=== PATIENT | male | born 1985 | race Hispanic/Latino ===

== ENCOUNTER 2018-12-17 18:24 | Emergency (ER) | payer OTHER, SELFPAY ==
--- NOTE | 2018-12-17 19:13 | RAD ---
RADIOGRAPH LEFT SHOULDER 3 VIEWS: 12/17/18 at 6:36 p.m. HISTORY: Dislocation of left shoulder. FINDINGS: There is no fracture, dislocation, subluxation, or any other major osseous abnormality. IMPRESSION: Negative. POS: [facility]
== END 2018-12-17 19:32 | disposition home or self-care (01) ==
LOC: ERS 18:24
DX: M25.512 Pain in left shoulder (principal); F17.210 Nicotine dependence, cigarettes, uncomplicated

== ENCOUNTER 2019-01-07 09:41 | Emergency (ER) | payer SELFPAY ==
[2019-01-07] MEDS ORDERED: Fentanyl 100 MCG/2 ML VIAL ONE ×2 (10:22→11:00)
[2019-01-07] MEDS ORDERED: Lidocaine 1% (PF) 30 ML VIAL ONE (10:26)
--- NOTE | 2019-01-07 11:15 | RAD ---
LEFT SHOULDER 3 VIEWS: Date: 01/07/19 INDICATION: Deformity. Patient denies injury. FINDINGS: There is an abnormal anterior and inferior location of the humeral head relative to the scapular erlin oid. No discrete fracture identified. IMPRESSION: Anterior left shoulder dislocation. Recommend follow-up imaging upon yarsanism of alignment to excl ude the possibility of a subtle associated fracture. POS: [facility]
[2019-01-07] MEDS ORDERED: PROPOFOL 20 ML ONE (11:43)
--- NOTE | 2019-01-07 13:53 | RAD ---
FRONTAL VIEW LEFT SHOULDER: Date: 01/07/19 INDICATION: Status post reduction. Recent anterior dislocation. FINDINGS: Post reduction view reveals improved alignment of the left humeral head. There is a focal defect with slight underlying density and cortical irregularity at the superolateral left humeral head indicativ e of a Hill-Sachs lesion. Subtle underlying cortical irregularity of the inferior aspect of the scapu lar glenoid may also be present, indicating an associated Bankart lesion given the recent dislocation . IMPRESSION: 1. Restored alignment. 2. Findings which suggest a Hill-Sachs lesion of the proximal left humerus, and the possibility of a Bankart lesion of the left scapular glenoid. Telephone call with above findings placed to ER physician, Carlin Denson, at time of interpretation. CODE CR. POS: [facility]
== END 2019-01-07 12:35 | disposition home or self-care (01) ==
LOC: ERS 09:41
DX: S43.015A Anterior dislocation of left humerus, initial encounter (principal); F31.9 Bipolar disorder, unspecified; F20.9 Schizophrenia, unspecified; F41.9 Anxiety disorder, unspecified; F17.210 Nicotine dependence, cigarettes, uncomplicated; W08.XXXA Fall from other furniture, initial encounter
CPT/HCPCS: 23650; 96374; 99152; J2001; J2704; J3010

== ENCOUNTER 2019-01-17 09:49 | Emergency (ER) | payer SELFPAY ==
--- NOTE | 2019-01-17 11:26 | RAD ---
2 VIEWS OF LEFT SHOULDER: Date; 01/17/19 COMPARISON: None. HISTORY: Left shoulder dislocation. Last shoulder dislocation was 1 week ago. COMPARISON: 01/07/19. FINDINGS: Two views of the left shoulder show anterior/inferior dislocation of the glenohumeral joint. There ap pears to be a Hill-Sachs deformity in the proximal humerus. IMPRESSION: Left glenohumeral dislocation. POS: [facility]
[2019-01-17] MEDS ORDERED: Fentanyl 100 MCG/2 ML VIAL ONE (11:35)
[2019-01-17] MEDS ORDERED: PROPOFOL 20 ML ONE (12:17)
--- NOTE | 2019-01-17 13:32 | RAD ---
TWO VIEWS LEFT SHOULDER: Comparison: 01-17-19 at 1:48 a.m. History: Post reduction. FINDINGS: Two views of the left shoulder shows reduction of the previously seen shoulder dislocation. There santa ears to be a [place]-Sachs deformity in the proximal humerus. IMPRESSION: Reduction of shoulder dislocation. POS: [facility]
== END 2019-01-17 14:06 | disposition home or self-care (01) ==
LOC: ERS 09:49
DX: S43.015A Anterior dislocation of left humerus, initial encounter (principal); S43.035A Inferior dislocation of left humerus, initial encounter; F41.9 Anxiety disorder, unspecified; F31.9 Bipolar disorder, unspecified; F20.9 Schizophrenia, unspecified; F17.210 Nicotine dependence, cigarettes, uncomplicated; W06.XXXA Fall from bed, initial encounter
CPT/HCPCS: 23650; 96374; 99152; J2704; J3010

== ENCOUNTER 2019-01-20 10:30 | Emergency (ER) | payer SELFPAY ==
[2019-01-20] MEDS ORDERED: Morphine 4 MG/ML VIAL ONE (11:10)
[2019-01-20] MEDS ORDERED: Ondansetron PF 4 MG/2 ML Vial ONE (11:10)
--- NOTE | 2019-01-20 11:52 | RAD ---
LEFT SHOULDER 2 VIEWS: Date: 01/20/19 HISTORY: Shoulder pain. COMPARISON: 01/17/19. FINDINGS: There is a recurrent anterior shoulder dislocation present. I do not visualize any definite avulsion type fractures. IMPRESSION: Recurrent anterior shoulder dislocation. POS: [facility]
[2019-01-20] MEDS ORDERED: PROPOFOL 20 ML ONE (12:50)
[2019-01-20] MEDS ORDERED: KETAMINE 100 MG/ML (5ML VIAL) ONE (12:53)
--- NOTE | 2019-01-20 15:23 | RAD ---
LEFT SHOULDER 2 VIEWS: Date: 01/20/19 INDICATION: History of dislocation status post reduction. COMPARISON: Since the prior examination, there has been interval reduction of the glenohumeral joint dislocation. No acute osseous abnormality is evident. IMPRESSION: Interval reduction of glenohumeral joint dislocation. POS: [facility]
== END 2019-01-20 14:49 | disposition home or self-care (01) ==
LOC: ERS 10:30
DX: S43.015A Anterior dislocation of left humerus, initial encounter (principal); F41.9 Anxiety disorder, unspecified; F31.9 Bipolar disorder, unspecified; F20.9 Schizophrenia, unspecified; F17.210 Nicotine dependence, cigarettes, uncomplicated; X58.XXXA Exposure to other specified factors, initial encounter
CPT/HCPCS: 23650; 96374; 96375; 99152; J2270; J2405; J2704

== ENCOUNTER 2019-04-10 23:50 | Emergency (ER) | payer SELFPAY ==
[2019-04-11] MEDS ORDERED: Propofol 500 MG/50 ML VIAL ONE (02:40)
--- NOTE | 2019-04-11 07:40 | RAD ---
LEFT SHOULDER 2 VIEWS 04/11/2019 at 2:47 AM HISTORY: left shoulder dislocation. Postreduction. COMPARISON: Earlier exam of 1:43 AM from the same date. FINDINGS: There is been interval reduction of the anterior dislocation at the glenohumeral joint noted on the e arlier exam. Anatomic alignment has been restored. A Hill-Sachs lesion is seen..
--- NOTE | 2019-04-11 07:41 | RAD ---
Radiograph left shoulder 2 views: DATE: 04/11/2019 Time: 1:44 AM HISTORY: 33-year-old male with left shoulder pain and deformity due to fall FINDINGS: There is anterior-inferior dislocation of the humeral head relative to the glenoid. There is a Hill-S achs defect at the humeral head indicating previous anterior shoulder dislocations. IMPRESSION: Anterior shoulder dislocation of the glenohumeral joint
== END 2019-04-11 03:40 | disposition home or self-care (01) ==
LOC: ERS 23:50
DX: S43.015A Anterior dislocation of left humerus, initial encounter (principal); F41.9 Anxiety disorder, unspecified; F31.9 Bipolar disorder, unspecified; F20.9 Schizophrenia, unspecified; F17.210 Nicotine dependence, cigarettes, uncomplicated; Z71.6 Tobacco abuse counseling; W11.XXXA Fall on and from ladder, initial encounter
CPT/HCPCS: 23650; 96374; J2704

== ENCOUNTER 2019-04-27 17:42 | Emergency (ER) | payer SELFPAY ==
[2019-04-27] MEDS ORDERED: Propofol 500 MG/50 ML VIAL ONE (18:12)
--- NOTE | 2019-04-27 18:53 | RAD ---
Exam: XR Shoulder Lt 2 View HISTORY: Post reduction of left shoulder dislocation. COMPARISON: Studies on 04/11/2019 FINDINGS: No acute fracture or dislocation is seen on this examination. As noted on the prior exam, there is a Hill-Sachs deformity involving the left humeral head. IMPRESSION: 1. No acute fracture or dislocation involving left shoulder. 2. Hill-Sachs deformity left humeral head also seen on prior exams.
== END 2019-04-27 19:11 | disposition home or self-care (01) ==
LOC: ERS 17:42
DX: S43.015A Anterior dislocation of left humerus, initial encounter (principal); F41.9 Anxiety disorder, unspecified; F31.9 Bipolar disorder, unspecified; F20.9 Schizophrenia, unspecified; F17.210 Nicotine dependence, cigarettes, uncomplicated; X50.9XXA Other and unspecified overexertion or strenuous movements or postures, initial encounter
CPT/HCPCS: 23650; J2704

== ENCOUNTER 2019-06-24 15:26 | Emergency (ER) | payer OTHER, SELFPAY ==
--- NOTE | 2019-06-24 16:08 | RAD ---
EXAM: LEFT SHOULDER THREE VIEWS: 06/24/19 HISTORY: Pain. FINDINGS: Anterior subcoracoid dislocation left glenohumeral joint. No overt acute fracture. IMPRESSION: Anterior subcoracoid dislocation left glenohumeral joint. POS: [facility]
[2019-06-24] MEDS ORDERED: Ketamine 50 MG/ML (10ML VIAL) ONE (16:30)
--- NOTE | 2019-06-24 17:04 | RAD ---
LEFT SHOULDER TWO VIEWS: 06/24/19 HISTORY: Post reduction for left shoulder dislocation. COMPARISON: 06/24/19 FINDINGS: The left shoulder joint has been reduced. Hill-Sachs osteochondral impaction injury, chronic. IMPRESSION: Reduction of the previously noted glenohumeral joint dislocation. POS: [facility]
== END 2019-06-24 16:05 | disposition home or self-care (01) ==
LOC: EEVIPCON 15:26 → ERS 15:26
DX: S43.015A Anterior dislocation of left humerus, initial encounter (principal); F31.9 Bipolar disorder, unspecified; F41.9 Anxiety disorder, unspecified; F20.9 Schizophrenia, unspecified; F17.210 Nicotine dependence, cigarettes, uncomplicated; X50.9XXA Other and unspecified overexertion or strenuous movements or postures, initial encounter
CPT/HCPCS: 23650; 99156

== ENCOUNTER 2020-12-30 06:18 | Emergency (ER) | payer SELFPAY ==
[2020-12-30] MEDS ORDERED: Propofol 1,000 MG/100 ML VIAL IV ONE (07:08)
[2020-12-30] MEDS ORDERED: PROPOFOL 20 ML ONE (07:08)
--- NOTE | 2020-12-30 08:04 | RAD ---
EXAM: 2 views of the left shoulder HISTORY: Post reduction of shoulder dislocation COMPARISON: 06/24/2019 FINDINGS: There is no evidence of acute fracture or dislocation. There may be a Hill-Sachs deformity in the left proximal humerus. No degenerative changes are seen. There is a questionable infiltrate in the left lung base. IMPRESSION: 1. No evidence of acute osseous abnormality. 2. Questionable left basilar infiltrate
== END 2020-12-30 08:00 | disposition home or self-care (01) ==
LOC: ERS 06:18
DX: S43.015A Anterior dislocation of left humerus, initial encounter (principal); F17.210 Nicotine dependence, cigarettes, uncomplicated
CPT/HCPCS: 23650; 99152; J2704

== ENCOUNTER 2021-01-18 09:55 | Emergency (ER) | payer SELFPAY ==
--- NOTE | 2021-01-18 10:22 | RAD ---
EXAM: XR Shoulder Lt 3 View STANDARD PROVIDED CLINICAL HISTORY: Shoulder dislocation COMPARISON: 12/30/2020 FINDINGS: Anterior left glenohumeral dislocation is demonstrated. Associated fracture is not evident. IMPRESSION: As above.
[2021-01-18] MEDS ORDERED: PROPOFOL 20 ML ONE (11:43)
[2021-01-18] MEDS ORDERED: Ketorolac Tromethamine 30 MG/ML VIAL ONE (11:43)
--- NOTE | 2021-01-18 12:18 | RAD ---
EXAM: XR Shoulder Lt 3 View STANDARD PROVIDED CLINICAL HISTORY: Postreduction COMPARISON: Examination earlier same date FINDINGS: Interval reduction of previously described anterior glenohumeral dislocation with resultant anatomic alignment. No evidence for associated fracture. IMPRESSION: As above.
== END 2021-01-18 12:32 | disposition home or self-care (01) ==
LOC: ERS 09:55
DX: S43.005A Unspecified dislocation of left shoulder joint, initial encounter (principal); F17.210 Nicotine dependence, cigarettes, uncomplicated; W22.09XA Striking against other stationary object, initial encounter
CPT/HCPCS: 23650; 96374; 99156; 99157; J1885; J2704

== ENCOUNTER 2021-02-06 16:41 | Emergency (ER) | payer SELFPAY ==
[2021-02-06] MEDS ORDERED: Ondansetron PF 4 MG/2 ML Vial ONE (17:52)
[2021-02-06] MEDS ORDERED: Morphine 4 MG/ML VIAL ONE (17:52)
[2021-02-06] MEDS ORDERED: Ketorolac Tromethamine 30 MG/ML VIAL ONE (17:52)
[2021-02-06] MEDS ORDERED: Ketamine 50 MG/ML (10ML VIAL) ONE (18:51)
== END 2021-02-06 19:20 | disposition home or self-care (01) ==
LOC: ERS 16:41
DX: S43.005A Unspecified dislocation of left shoulder joint, initial encounter (principal); F17.210 Nicotine dependence, cigarettes, uncomplicated; X58.XXXA Exposure to other specified factors, initial encounter
CPT/HCPCS: 23650; 96374; 96375; 99156; J1885; J2270; J2405

== ENCOUNTER 2021-03-03 12:13 | Emergency (ER) | payer OTHER, SELFPAY ==
[2021-03-03 12:53] LABS: #Lymphocytes 1.4 thou/uL (1.20-3.40); #Monocytes 0.6 thou/uL (0.11-0.59); #Neutrophils 1.9 thou/uL (1.40-6.50); %Basophils 0.3 % (0.0-1.0); %Eosinophils 0.7 % (0.0-10.0); %Lymphocytes 36.8 % (21.0-51.0); %Monocytes 14.3 % (0.0-10.0); %Neutrophils 47.8 % (42.0-75.0); Hemoglobin 14.6 g/dL (14.0-18.0); Mean Corpuscular HGB CONC 33.2 g/dL (32.0-36.0); Mean Corpuscular Hemoglobin 31.3 pg (27.0-31.0); Mean Corpuscular Volume 94.2 fL (78.0-98.0); Mean Platelet Volume 9.8 fL (7.4-10.4); Platelet Count 130 thou/uL (130-400); RBC Distribution Width 12.8 % (11.5-14.5); Red Blood Cell (RBC) Count 4.65 mill/uL (4.70-6.10); White Blood Cell (WBC) Count 3.9 thou/uL (4.8-10.8)
[2021-03-03 13:07] LABS: ALT (SGPT) 25 U/L (8-55); AST (SGOT) 27 U/L (5-34); Albumin 3.9 g/dL (3.5-5.0); Alkaline Phosphatase 65 U/L (40-110); Anion Gap 12 mmol/L (10-20); BUN (Urea Nitrogen) 11 mg/dL (8.9-20.6); Bilirubin, Total 0.4 mg/dL (0.2-1.2); Calc. Creatinine Clearance 0 mL/min (70-130); Carbon Dioxide 25 mmol/L (22-29); Chloride 102 mmol/L (98-107); Globulin 2.9 g/dL (2.4-3.5); Glucose 101 mg/dL (70-105); Potassium 3.7 mmol/L (3.5-5.1); Protein, Total 6.8 g/dL (6.0-8.3); Sodium 135 mmol/L (136-145)
[2021-03-03] MEDS ORDERED: Ketorolac Tromethamine 30 MG/ML VIAL ONE (14:47)
[2021-03-03 15:12] LABS: Bacteria/HPF None Seen HPF (None Seen); Bilirubin Negative (Negative); Blood, Urine Negative (Negative); Clarity Clear (Clear); Glucose, Urine (Dipstick) Normal (Negative); Ketone, Urine 10 mg/dL (Negative); Leukocyte Negative Leu/uL (Negative); Nitrite Negative (Negative); Protein, Urine (Dipstick) 30 mg/dL (Neg-Trace); RBC/HPF 0-3 HPF (0-3); Specific Gravity, Urine 1.022 (1.002-1.036); Squamous Epithelial 0-3 HPF (0-3); Urobilinogen Normal mg/dL (Less than 2); WBC/HPF 0-3 HPF (0-3)
[2021-03-03 19:04] LABS: SARS-CoV-2 PCR by NAA Not Detected (NotDetected)
== END 2021-03-03 16:07 | disposition home or self-care (01) ==
LOC: ERS 12:13
DX: M79.10 Myalgia, unspecified site (principal); R53.1 Weakness; F17.210 Nicotine dependence, cigarettes, uncomplicated; Z20.822 Contact with and (suspected) exposure to COVID-19
CPT/HCPCS: 71045; 80053; 81003; 81015; 83605; 84484; 85025; 87040; 87086; 87635; 93005; 96374; J1885; U0003; U0005

== ENCOUNTER 2021-04-15 13:35 | Emergency (ER) | payer SELFPAY | END 2021-04-15 14:30 | disposition home or self-care (01) | LOC: ERS 13:35 | DX: M21.922 Unspecified acquired deformity of left upper arm (principal); F17.210 Nicotine dependence, cigarettes, uncomplicated | CPT/HCPCS: 99281 ==

== ENCOUNTER 2021-04-18 09:51 | Emergency (ER) | payer OTHER, SELFPAY ==
[2021-04-18] MEDS ORDERED: Ondansetron PF 4 MG/2 ML Vial ONE (10:20)
[2021-04-18] MEDS ORDERED: Morphine 4 MG/ML VIAL ONE (10:20)
[2021-04-18] MEDS ORDERED: PROPOFOL 20 ML ONE (11:37)
== END 2021-04-18 13:00 | disposition home or self-care (01) ==
LOC: ERS 09:51
DX: S43.005A Unspecified dislocation of left shoulder joint, initial encounter (principal); F17.210 Nicotine dependence, cigarettes, uncomplicated
CPT/HCPCS: 23650; 96374; 96375; 99152; J2270; J2405; J2704

== ENCOUNTER 2021-05-12 06:19 | Emergency (ER) | payer OTHER, SELFPAY ==
[2021-05-12] MEDS ORDERED: PROPOFOL 20 ML ONE (07:02)
[2021-05-12] MEDS ORDERED: Midazolam HCl 5 mg/ml Vial ONE (07:17)
[2021-05-12] MEDS ORDERED: Fentanyl 100 MCG/2 ML VIAL ONE (07:17)
== END 2021-05-12 09:10 | disposition home or self-care (01) ==
LOC: ERS 06:19
DX: S43.005A Unspecified dislocation of left shoulder joint, initial encounter (principal); F17.210 Nicotine dependence, cigarettes, uncomplicated; Z79.899 Other long term (current) drug therapy; X58.XXXA Exposure to other specified factors, initial encounter
CPT/HCPCS: 23650; 96374; 96375; J2250; J2704; J3010

== ENCOUNTER 2021-05-14 11:49 | Emergency (ER) | payer SELFPAY ==
[2021-05-14] MEDS ORDERED: Morphine 4 MG/ML VIAL ONE (12:23)
[2021-05-14] MEDS ORDERED: PROPOFOL 20 ML ONE (12:23)
[2021-05-14] MEDS ORDERED: Ondansetron PF 4 MG/2 ML Vial ONE (12:55)
[2021-05-14] MEDS ORDERED: Ketamine 50 MG/ML (10ML VIAL) ONE (13:12)
== END 2021-05-14 14:57 | disposition home or self-care (01) ==
LOC: ERS 11:49
DX: S43.005A Unspecified dislocation of left shoulder joint, initial encounter (principal); F17.210 Nicotine dependence, cigarettes, uncomplicated; X58.XXXA Exposure to other specified factors, initial encounter
CPT/HCPCS: 23650; 96374; 96375; 99152; J2270; J2405; J2704

== ENCOUNTER 2021-05-20 10:20 | Emergency (ER) | payer SELFPAY ==
[2021-05-20] MEDS ORDERED: HYDROmorphone 0.5 MG/0.5 ML SYRINGE ONE (10:53)
[2021-05-20] MEDS ORDERED: PROPOFOL 20 ML ONE (10:56)
[2021-05-20] MEDS ORDERED: Ondansetron PF 4 MG/2 ML Vial ONE (11:33)
[2021-05-20] MEDS ORDERED: Ketamine 50 MG/ML (10ML VIAL) ONE (12:16)
== END 2021-05-20 15:44 | disposition home or self-care (01) ==
LOC: ERS 10:20
DX: S43.005A Unspecified dislocation of left shoulder joint, initial encounter (principal); F17.210 Nicotine dependence, cigarettes, uncomplicated; X58.XXXA Exposure to other specified factors, initial encounter
CPT/HCPCS: 23650; 96374; 96375; 99152; J1170; J2405; J2704

== ENCOUNTER 2021-07-31 11:50 | Emergency (ER) | payer SELFPAY ==
[2021-07-31] MEDS ORDERED: PROPOFOL 20 ML ONE (14:16)
== END 2021-07-31 16:24 | disposition home or self-care (01) ==
LOC: ERS 11:50
DX: S43.015A Anterior dislocation of left humerus, initial encounter (principal); F17.210 Nicotine dependence, cigarettes, uncomplicated; F31.9 Bipolar disorder, unspecified; F41.9 Anxiety disorder, unspecified; Z79.899 Other long term (current) drug therapy; X58.XXXA Exposure to other specified factors, initial encounter
CPT/HCPCS: 23650; 99152; J2704

== ENCOUNTER 2021-08-02 16:32 | Emergency (ER) | payer SELFPAY ==
[2021-08-02] MEDS ORDERED: Fentanyl 100 MCG/2 ML VIAL ONE (17:30)
[2021-08-02] MEDS ORDERED: PROPOFOL 20 ML ONE (17:30)
== END 2021-08-02 18:53 | disposition home or self-care (01) ==
LOC: ERS 16:32
DX: M24.412 Recurrent dislocation, left shoulder (principal); F17.210 Nicotine dependence, cigarettes, uncomplicated
CPT/HCPCS: 23650; 96374; 99152; J2704; J3010

== ENCOUNTER 2021-08-07 23:41 | Emergency (ER) | payer SELFPAY ==
[2021-08-08] MEDS ORDERED: PROPOFOL 20 ML ONE (01:25)
[2021-08-08] MEDS ORDERED: Fentanyl 100 MCG/2 ML VIAL ONE (01:51)
== END 2021-08-08 02:41 | disposition home or self-care (01) ==
LOC: ERS 23:41
DX: M24.412 Recurrent dislocation, left shoulder (principal); F17.210 Nicotine dependence, cigarettes, uncomplicated
CPT/HCPCS: 23650; 96374; 99156; J2704; J3010

== ENCOUNTER 2021-08-21 13:47 | Emergency (ER) | payer SELFPAY ==
[2021-08-21] MEDS ORDERED: Ketamine 50 MG/ML (10ML VIAL) ONE (16:32)
== END 2021-08-21 18:15 | disposition home or self-care (01) ==
LOC: ERS 13:47
DX: S43.015A Anterior dislocation of left humerus, initial encounter (principal); F17.210 Nicotine dependence, cigarettes, uncomplicated; X58.XXXA Exposure to other specified factors, initial encounter
CPT/HCPCS: 23650; 99152; 99153

== ENCOUNTER 2021-09-14 18:26 | Emergency (ER) | payer OTHER, SELFPAY ==
[2021-09-14] MEDS ORDERED: Lidocaine 1% PF 5 ML VIAL ONE (19:44)
[2021-09-14] MEDS ORDERED: Fentanyl 100 MCG/2 ML VIAL ONE (19:44)
[2021-09-14] MEDS ORDERED: Ondansetron PF 4 MG/2 ML Vial ONE (20:44)
[2021-09-14] MEDS ORDERED: Midazolam HCl 2 mg/2 ml Vial ONE (21:03)
[2021-09-14] MEDS ORDERED: Ketamine 50 MG/ML (10ML VIAL) ONE (21:10)
== END 2021-09-14 22:15 ==
LOC: EEVIPCON 18:26 → ERS 18:26
DX: S43.015A Anterior dislocation of left humerus, initial encounter (principal); M21.922 Unspecified acquired deformity of left upper arm; Z79.899 Other long term (current) drug therapy; F17.210 Nicotine dependence, cigarettes, uncomplicated; X50.9XXA Other and unspecified overexertion or strenuous movements or postures, initial encounter
CPT/HCPCS: 23650; 96374; 96375; 99156; 99157; J2250; J2405; J3010

== ENCOUNTER 2021-10-28 03:23 | Emergency (ER) | payer SELFPAY ==
[2021-10-28] MEDS ORDERED: Ketamine 50 MG/ML (10ML VIAL) ONE (04:46)
== END 2021-10-28 05:44 ==
LOC: ERS 03:23
DX: S43.005A Unspecified dislocation of left shoulder joint, initial encounter (principal); F17.210 Nicotine dependence, cigarettes, uncomplicated; W19.XXXA Unspecified fall, initial encounter
CPT/HCPCS: 23650; 99152

== ENCOUNTER 2021-11-15 08:11 | Emergency (ER) | payer SELFPAY ==
[2021-11-15] MEDS ORDERED: PROPOFOL 20 ML ONE ×2 (08:34→11:02)
[2021-11-15] MEDS ORDERED: Ketamine 50 MG/ML (10ML VIAL) ONE ×2 (08:34→11:02)
== END 2021-11-15 12:30 | disposition home or self-care (01) ==
LOC: ERS 08:11
DX: S43.005A Unspecified dislocation of left shoulder joint, initial encounter (principal); M21.922 Unspecified acquired deformity of left upper arm; F17.210 Nicotine dependence, cigarettes, uncomplicated
CPT/HCPCS: 23650; 99156; 99157; J2704

== ENCOUNTER 2021-11-19 17:26 | Emergency (ER) | payer SELFPAY ==
[2021-11-19] MEDS ORDERED: Midazolam HCl 5 mg/ml Vial ONE (21:38)
[2021-11-19] MEDS ORDERED: Fentanyl 100 MCG/2 ML VIAL ONE (21:38)
[2021-11-19] MEDS ORDERED: PROPOFOL 20 ML ONE (22:29)
== END 2021-11-19 23:49 | disposition home or self-care (01) ==
LOC: ERS 17:26
DX: M24.412 Recurrent dislocation, left shoulder (principal); Z21 Asymptomatic human immunodeficiency virus [HIV] infection status; F17.210 Nicotine dependence, cigarettes, uncomplicated
CPT/HCPCS: 23650; 96374; 99152; J2250; J2704; J3010

== ENCOUNTER 2021-11-22 11:42 | Emergency (ER) | payer SELFPAY ==
[2021-11-22] MEDS ORDERED: Ketamine 50 MG/ML (10ML VIAL) ONE (13:34)
[2021-11-22] MEDS ORDERED: PROPOFOL 20 ML ONE (14:18)
== END 2021-11-22 15:22 | disposition home or self-care (01) ==
LOC: ERS 11:42
DX: S43.005A Unspecified dislocation of left shoulder joint, initial encounter (principal); Z21 Asymptomatic human immunodeficiency virus [HIV] infection status; F17.210 Nicotine dependence, cigarettes, uncomplicated
CPT/HCPCS: 99284; J2704

== ENCOUNTER 2021-12-19 13:41 | Emergency (ER) | payer SELFPAY ==
[2021-12-19] MEDS ORDERED: PROPOFOL 20 ML ONE (16:46)
== END 2021-12-19 17:40 | disposition home or self-care (01) ==
LOC: ERS 13:41
DX: M24.412 Recurrent dislocation, left shoulder (principal); F17.210 Nicotine dependence, cigarettes, uncomplicated; Z21 Asymptomatic human immunodeficiency virus [HIV] infection status
CPT/HCPCS: 23650; 94760; J2704

== ENCOUNTER 2021-12-25 23:48 | Emergency (ER) | payer SELFPAY ==
[2021-12-26] MEDS ORDERED: PROPOFOL 20 ML ONE (00:16)
== END 2021-12-26 03:00 | disposition home or self-care (01) ==
LOC: ERS 23:48
DX: S43.015A Anterior dislocation of left humerus, initial encounter (principal); F17.210 Nicotine dependence, cigarettes, uncomplicated; X58.XXXA Exposure to other specified factors, initial encounter
CPT/HCPCS: 23650; 94760; J2704

== ENCOUNTER 2022-02-28 08:30 | Emergency (ER) | payer SELFPAY ==
[2022-02-28] MEDS ORDERED: Ketamine 50 MG/ML (10ML VIAL) ONE (09:37)
[2022-02-28] MEDS ORDERED: Propofol 1,000 MG/100 ML VIAL IV ONE (09:37)
[2022-02-28] MEDS ORDERED: PROPOFOL 20 ML ONE (09:39)
[2022-02-28] MEDS ORDERED: Fentanyl 100 MCG/2 ML VIAL ONE (11:51)
== END 2022-02-28 13:41 | disposition home or self-care (01) ==
LOC: ERS 08:30
DX: S43.015A Anterior dislocation of left humerus, initial encounter (principal); B20 Human immunodeficiency virus [HIV] disease; F17.210 Nicotine dependence, cigarettes, uncomplicated; F17.290 Nicotine dependence, other tobacco product, uncomplicated; Z79.899 Other long term (current) drug therapy; X58.XXXA Exposure to other specified factors, initial encounter
CPT/HCPCS: 96374; 99152; 99153; J2704; J3010

== ENCOUNTER 2022-04-12 21:49 | Emergency (ER) | payer SELFPAY ==
[2022-04-12] MEDS ORDERED: PROPOFOL 20 ML ONE (22:41)
[2022-04-12] MEDS ORDERED: Ketorolac Tromethamine 30 MG/ML VIAL ONE (22:41)
== END 2022-04-13 00:05 | disposition home or self-care (01) ==
LOC: ERS 21:49
DX: S43.015A Anterior dislocation of left humerus, initial encounter (principal); F17.210 Nicotine dependence, cigarettes, uncomplicated; Z79.899 Other long term (current) drug therapy; X58.XXXA Exposure to other specified factors, initial encounter
CPT/HCPCS: 23650; 96374; 99152; J1885; J2704

== ENCOUNTER 2022-04-14 05:07 | Emergency (ER) | payer SELFPAY ==
[2022-04-14] MEDS ORDERED: Lidocaine 1% PF 5 ML VIAL ONE (06:48)
[2022-04-14] MEDS ORDERED: PROPOFOL 20 ML ONE (07:42)
== END 2022-04-14 08:25 | disposition home or self-care (01) ==
LOC: ERS 05:07
DX: M24.412 Recurrent dislocation, left shoulder (principal); F17.210 Nicotine dependence, cigarettes, uncomplicated; Z21 Asymptomatic human immunodeficiency virus [HIV] infection status; Z79.899 Other long term (current) drug therapy
CPT/HCPCS: 23650; 99152; J2704

== ENCOUNTER 2022-04-17 05:25 | Emergency (ER) | payer SELFPAY ==
[2022-04-17] MEDS ORDERED: Lidocaine 1% PF 5 ML VIAL ONE ×3 (05:42→06:26)
[2022-04-17] MEDS ORDERED: Midazolam HCl 5 mg/ml Vial ONE (05:58)
[2022-04-17] MEDS ORDERED: Ketamine 50 MG/ML (10ML VIAL) ONE (07:16)
== END 2022-04-17 09:35 | disposition home or self-care (01) ==
LOC: ERS 05:25
DX: M24.412 Recurrent dislocation, left shoulder (principal); F17.210 Nicotine dependence, cigarettes, uncomplicated; F17.290 Nicotine dependence, other tobacco product, uncomplicated; Z21 Asymptomatic human immunodeficiency virus [HIV] infection status
CPT/HCPCS: 23650; 99156; J2250

== ENCOUNTER 2022-04-18 13:04 | Emergency (ER) | payer SELFPAY | END 2022-04-18 13:54 | disposition home or self-care (01) | LOC: ERS 13:04 | DX: S43.005A Unspecified dislocation of left shoulder joint, initial encounter (principal); F17.210 Nicotine dependence, cigarettes, uncomplicated; F17.290 Nicotine dependence, other tobacco product, uncomplicated; Z21 Asymptomatic human immunodeficiency virus [HIV] infection status; X50.9XXA Other and unspecified overexertion or strenuous movements or postures, initial encounter | CPT/HCPCS: 99283 ==